=== PATIENT | female | born 1940 | race Caucasian/White ===

== ENCOUNTER → 2021-08-21 | Outpatient (CLI) | payer OTHER | LOC: SJCVC 13:47 | PROVIDERS: ATTEND Internal Medicine | DX: R94.31 Abnormal electrocardiogram [ECG] [EKG] (principal); I42.9 Cardiomyopathy, unspecified; I10 Essential (primary) hypertension; R00.2 Palpitations; E78.5 Hyperlipidemia, unspecified; M19.90 Unspecified osteoarthritis, unspecified site; J45.909 Unspecified asthma, uncomplicated; I65.23 Occlusion and stenosis of bilateral carotid arteries; I47.1 Supraventricular tachycardia; Z79.899 Other long term (current) drug therapy ==